=== PATIENT | female | born 1990 | race Caucasian/White ===

== ENCOUNTER 2019-08-09 00:03 | Emergency (ER) | payer MEDICAID ==
[~2019-08-09] VITALS: Ht 167.6 cm; Wt 65.8 kg
[2019-08-09] MEDS ORDERED: DIPHENHYDRAMINE 50 MG/ML, 1ML ONE (00:27)
[2019-08-09] MEDS ORDERED: ACETAMINOPHEN 325 MG TABLET ONE (00:27)
[2019-08-09] MEDS ORDERED: ONDANSETRON 2MG/ML, 2ML ONE (00:27)
[2019-08-09] MEDS ORDERED: ONDANSETRON 2MG/ML, 2ML IVPush ONE (00:30)
[2019-08-09] MEDS ORDERED: ACETAMINOPHEN 325 MG TABLET PO ONE (00:30)
[2019-08-09] MEDS ORDERED: SODIUM CHLORIDE 0.9% 1,000ML IVBOLUS ONE (00:30)
[2019-08-09] MEDS ORDERED: DIPHENHYDRAMINE 50 MG/ML, 1ML IVPush ONE (00:30)
[2019-08-09 00:47] LABS: BASOPHILS # (AUTO) 0.03 x10^3/uL (0-0.1); BASOPHILS % (AUTO) 1 % (0-1); EOSINOPHILS # (AUTO) 0.14 x10^3/uL (0-0.4); EOSINOPHILS % (AUTO) 2 % (1-7); LYMPHOCYTES # (AUTO) 1.97 x10^3/uL (1-3.4); LYMPHOCYTES % (AUTO) 30 % (22-44); MD NO; MEAN CORPUSCULAR HEMOGLOBIN 31.9 pg (27.0-34.8); MEAN CORPUSCULAR HGB CONC 33.5 g/dL (32.4-35.8); MEAN CORPUSCULAR VOLUME 95.3 fL (80-100); MEAN PLATELET VOLUME 8.9 fL (7.4-10.4); MONOCYTES # (AUTO) 0.39 x10^3/uL (0.2-0.8); MONOCYTES % (AUTO) 6 % (2-9); NEUTROPHILS # (AUTO) 4.12 x10^3/uL (1.8-6.8); NEUTROPHILS % (AUTO) 62 % (42-75); PLATELET COUNT 173 x10^3/uL (130-400); RED BLOOD COUNT 3.82 x10^6/uL (3.82-5.3); RED CELL DISTRIBUTION WIDTH 13.5 % (9.6-15.2)
[2019-08-09 00:59] LABS: ALANINE AMINOTRANSFERASE 17 U/L (12-78); ALBUMIN 2.9 g/dL (3.4-5.0); ANION GAP 6 mmol/L (5-15); CHLORIDE 109 mmol/L (98-107); CREATININE 0.49 mg/dL (0.55-1.02)
[2019-08-09 01:02] LABS: ALKALINE PHOSPHATASE 41 U/L (45-117); BILIRUBIN,TOTAL 0.5 mg/dL (0.2-1.0); TOTAL PROTEIN 6.1 g/dL (6.4-8.2)
[2019-08-09 01:06] LABS: MICROSCOPIC NOT IND
[2019-08-09 01:09] VITALS: BP 93/42
[2019-08-09 01:12] LABS: CULTURE INDICATED? NO
--- NOTE | 2019-08-09 01:51 | NUR ---
Patient states pain decreased from a 10/10 to a 6/10. Pain increases to a 10/10 when she moves.
--- NOTE | 2019-08-09 02:22 | NUR ---
PT REPORTS 'A LITTLE BIT' OF AN IMPROVEMENT IN ROSE. DC EDUCATION PROVIDED, PT DEMONSTRATES UNDERSTANDING. PT AMBULATED STEADILY TO DC WITH RN.
== END 2019-08-09 02:24 | disposition home or self-care (01) ==
LOC: ED 00:59
DX: O99.612 Diseases of the digestive system complicating pregnancy, second trimester (principal); A09 Infectious gastroenteritis and colitis, unspecified; O21.9 Vomiting of pregnancy, unspecified; G43.909 Migraine, unspecified, not intractable, without status migrainosus; Z3A.16 16 weeks gestation of pregnancy
CPT/HCPCS: 36415; 80053; 81003; 83690; 85025; 96374; 96375; 99283; J1200; J2405

== ENCOUNTER 2019-09-01 17:29 | Outpatient (CLI) | payer MEDICAID ==
[~2019-09-01] VITALS: Ht 167.6 cm; Wt 67.2 kg
[2019-09-01] MEDS ORDERED: PREN1TAB60 PO (18:14)
[2019-09-01] MEDS ORDERED: ACET650S21 PO (18:15)
[2019-09-01 18:40] VITALS: BP 106/61
== END 2019-09-01 20:55 | disposition home or self-care (01) ==
LOC: LDOP 17:29
PROVIDERS: ATTEND Obstetrics & Gynecology Female Pelvic Medicine and Reconstructive Surgery
DX: O42.912 Preterm premature rupture of membranes, unspecified as to length of time between rupture and onset of labor, second trimester (principal); Z3A.17 17 weeks gestation of pregnancy
CPT/HCPCS: 76815; 84112; 89060; 99211; G0463; Q0114